=== PATIENT | female | born 1980 | race Caucasian/White ===

== ENCOUNTER 2020-08-12 08:52 | Emergency (ER) | payer MEDICAID ==
[~2020-08-12] VITALS: Ht 167.6 cm; Wt 71.2 kg
[2020-08-12 08:54] VITALS: BP 139/97
--- NOTE | 2020-08-12 09:08 | NUR ---
Patient taken to bed 11.
--- NOTE | 2020-08-12 09:11 | NUR ---
40 y/o female from home c/o lower back pain radiating to right calf x 3 days. Was seen at clinic 3 days ago and given Baclofen and Ibuprofen, no pain relief. States increased pain with ambulation, and ambulates with limping gait. 10/10 sharp, shooting pain. Denies trauma/injury. Positioned for comfort. VSS medhx: MADDI, HLD
--- NOTE | 2020-08-12 09:14 | NUR ---
Dr. Olmos is evaluating the patient at bedside.
[2020-08-12] MEDS ORDERED: MORPHINE SULFATE 2 MG/ML SYR IM ONE (09:15)
--- NOTE | 2020-08-12 09:35 | NUR ---
Ultrasound at bedside
[2020-08-12 10:01] VITALS: BP 130/90
--- NOTE | 2020-08-12 10:01 | NUR ---
Patient discharged with v/s stable. Written and verbal after care instructions given and explained. Patient alert, oriented and verbalized understanding of instructions. Ambulatory with steady gait. All questions addressed prior to discharge. ID band removed. Patient advised to follow up with PMD. Rx of Tramadol 50mg and Medrol Dosepak 4mg given. Patient educated on indication of medication including possible reaction and side effects. Opportunity to ask questions provided and answered.
== END 2020-08-12 10:01 | disposition home or self-care (01) ==
LOC: EDBD 08:52 → MED 08:52
DX: M54.41 Lumbago with sciatica, right side (principal); R03.0 Elevated blood-pressure reading, without diagnosis of hypertension; R10.9 Unspecified abdominal pain; E11.9 Type 2 diabetes mellitus without complications
CPT/HCPCS: 81002; 81025; 93971; 96372; 99284; J2270; Q0092